=== PATIENT | female | born 1935 | race Hispanic/Latino ===

== ENCOUNTER → 2018-08-03 11:37 | Outpatient (CLI) | payer MEDICAID, SELFPAY ==
--- NOTE | 2018-08-03 | DI.RAD.S_ITS ---
PROCEDURE: XR KNEE RT 3V INDICATIONS: Chroni Pain Right knee TECHNIQUE: 3 views of the knee were acquired. COMPARISON: None. FINDINGS: Bones: No fractures or dislocations. No suspicious bony lesions. Severe narrowing of the patellofemoral joint space, and diffuse degenerative spurring. Possible small loose bodies or potentially chronic appearing fracture fragment lateral to the patella. Small joint effusion Extensive chondrocalcinosis is present. There are numerous vascular calcifications. IMPRESSION: Severe degenerative joint disease primarily involving the patellofemoral compartment Chondrocalcinosis. Small joint effusion. Possible large loose body versus heterotopic ossification or remote fracture fragment projecting lateral to the patella. Dictated by: Mingo Stewart M.D. on 08/03/2018 at 14:35 Approved by: Mingo Stewart M.D. on 08/03/2018 at 14:38
== END ==
PROVIDERS: Visit Provider Family Medicine
DX: M25.561 Pain in right knee (principal); M17.11 Unilateral primary osteoarthritis, right knee; M25.461 Effusion, right knee; M11.261 Other chondrocalcinosis, right knee; G89.29 Other chronic pain
CPT/HCPCS: 73562